=== PATIENT | female | born 1970 | race Caucasian/White ===

== ENCOUNTER → 2017-06-01 | Outpatient (CLI) | payer OTHER ==
--- NOTE | 2017-06-01 12:12 | 2DMMODE ---
[place] [address] 2 D/M-MODE ECHOCARDIOGRAM Name: BRO BETTENCOURT Room: [facility]#: [id number] Admission: 06/01/17 Attend Phys: Leland Nix, Discharge: Date of : 74 Date of Service: 06/01/17 1212 Report #: [id number] THIS REPORT FOR: //name// APPROVED REPORT Study performed: 06/01/2017 09:57:27 EXAM: Comprehensive 2D, Doppler, and color-flow Echocardiogram Patient Location: Out-Patient Status: routine BSA: 1.80 HR: 72 bpm BP: 130/80 mmHg Rhythm: NSR Other Information Study Quality: Good Indications Mitral Valve Prolapse VSD Hypertension/HDD 2D Dimensions IVSd: 8.00 (7-11mm) LVOT Diam: 33.02 (18-24mm) LVDd: 55.33 mm PWd: 7.50 (7-11mm) LVDs: 38.29 (25-40mm) Volumes Left Atrial Volume (Systole) LA ESV Index: 36.20 mL/m2 Aortic Valve AoV Peak Poncho.: 1.47 m/s AO Peak Gr.: 8.60 mmHg LVOT Max P.31 mmHg AO Mean Gr.: 4.88 mmHg LVOT Mean P.13 mmHg LVOT Max V: 0.76 m/s AO V2 VTI: 25.55 cm LVOT Mean V: 0.49 m/s KEILY (VTI): 5.60 cm2 LVOT V1 VTI: 16.71 cm Mitral Valve E/A Ratio: 1.11 MV Decel. Time: 274.04 [place] [address] 2 D/M-MODE ECHOCARDIOGRAM Name: BRO BETTENCOURT Room: [facility]#: [id number] Admission: 06/01/17 Attend Phys: Leland Nix, Discharge: Date of : 74 Date of Service: 06/01/17 1212 Report #: [id number] MV E Max Poncho.: 0.60 m/s MV PHT: 79.47 ms MVA (PHT): 2.77 cm2 TDI E/Lateral E': 4.62 E/Medial E': 4.29 Medial E' Poncho.: 0.14 m/s Lateral E' Poncho.: 0.13 m/s Pulmonary Valve PV Peak Poncho.: 0.87 m/s PV Peak Gr.: 3.03 mmHg Tricuspid Valve TR Peak Gr.: 17.19 mmHg RVSP: 22.00 mmHg Left Ventricle The left ventricle is normal size. There is global hypokinesis of the left ventricle. There is normal left ventricular wall thickness. Ventricular septal defect is present. Left ventricular systolic function is mildly decreased. LVEF is 40-45%. The left ventricular diastolic function is normal. Right Ventricle The right ventricle is normal size. The right ventricular systolic function is normal. Atria Left atrium is mildly dilated. The right atrium size is normal. Aortic Valve Aortic valve leaflets are mildly sclerotic but open well. Trace aortic regurgitation. There is no aortic valvular stenosis. Mitral Valve The mitral valve is normal in structure. Trace mitral regurgitation. No evidence of mitral valve stenosis. There is mild mitral valve prolapse. Tricuspid Valve The tricuspid valve is normal in structure. Trace tricuspid regurgitation. The RVSP is ___22____ mmHg. Pulmonic Valve The pulmonary valve is normal in structure. [place] [address] 2 D/M-MODE ECHOCARDIOGRAM Name: BRO BETTENCOURT Room: [facility]#: [id number] Admission: 06/01/17 Attend Phys: Leland Nix, Discharge: Date of : 74 Date of Service: 06/01/17 1212 Report #: [id number] Great Vessels The aortic root is normal in size. IVC is normal in size and collapses with >50% inspiration Pericardium There is no pericardial effusion. <Conclusion> LVEF is 40-45%. Left atrium is mildly dilated. <ELECTRONICALLY SIGNED> By: Jimmy Lujan MD, FAC 06/01/17 121 11 11 Jimmy Lujan MD, [facility] /INF
== END ==
LOC: M.CRD 09:45
DX: I10 Essential (primary) hypertension (principal); I34.1 Nonrheumatic mitral (valve) prolapse; Q21.0 Ventricular septal defect